=== PATIENT | female | born 1955 | race Caucasian/White ===

== ENCOUNTER → 2023-09-12 | Outpatient (CLI) | payer OTHER ==
[2023-09-12 17:34] LABS: BASOPHILS PERCENT AUTO 2 % (0-2); EOSINOPHILS ABSOLUTE AUTO 0.05 K/mm3 (0.00-0.68); EOSINOPHILS PERCENT AUTO 1 % (0-6); Hemoglobin 10.4 g/dL (11.5-16.0); IMMATURE GRAN ABSOLUTE AUTO 0.02 K/mm3 (0.00-0.10); IMMATURE GRAN PERCENT AUTO 0 % (0-1); LYMPHOCYTES ABSOLUTE AUTO 1.96 K/mm3 (0.84-5.20); LYMPHOCYTES PERCENT AUTO 33 % (21-46); MONOCYTES ABSOLUTE AUTO 0.44 K/mm3 (0.16-1.47); MONOCYTES PERCENT AUTO 8 % (4-13); Mean Corpuscular HGB 30.1 pg (26.0-34.0); Mean Corpuscular HGB Conc 33.5 g/dL (31.5-36.5); Mean Corpuscular Volume 90 fL (80-100); Mean Platelet Volume 9.5 fL (9.1-12.4); NEUTROPHILS ABSOLUTE AUTO 3.31 K/mm3 (1.96-9.15); NEUTROPHILS PERCENT AUTO 56 % (41-73); Platelet Count 390 K/mm3 (150-400); RDW Coefficient Variation 23.9 % (11.7-14.2); RDW Standard Deviation 76.8 fL (35.1-46.3); Red Blood Cell Count 3.45 M/mm3 (3.80-5.20); White Blood Cell Count 5.88 K/mm3 (4.00-11.30)
[2023-09-12 17:42] LABS: CHOL/HDL RATIO 3.3; Cholesterol 147 mg/dL (50-200); HDL Cholesterol 45 mg/dL (>39); Low Density Lipoprotein Chol 92 mg/dL (0-110); Triglycerides 52 mg/dL (30-160); Very Low Density Lipoprot Chol 10 mg/dL (6-32)
[2023-09-14 08:11] LABS: BILIRUBIN, TOTAL 0.3 mg/dL (0.0-1.2); CALCIUM, SERUM 8.8 mg/dL (8.7-10.3); CREATININE, SERUM 0.63 mg/dL (0.57-1.00); GLOBULIN, TOTAL 2.1 g/dL (1.5-4.5); POTASSIUM, SERUM 3.6 mmol/L (3.5-5.2); PROTEIN, TOTAL, SERUM 6.3 g/dL (6.0-8.5)
[2023-09-14 10:18] LABS: HIV 1,2 COMBO ANTIGEN/ANTIBODY Negative (Negative)
[2023-09-14 11:37] LABS: HEPATITIS C AB CIA INTERP Negative (Negative); HEPATITIS C ANTIBODY CIA INDEX 0.05 IV
== END | disposition home or self-care (01) ==
LOC: LAB SHORT 16:00 → LAB 16:00
PROVIDERS: Nurse Practitioner Family
DX: Z11.59 Encounter for screening for other viral diseases (principal); Z13.0 Encounter for screening for diseases of the blood and blood-forming organs and certain disorders involving the immune mechanism; Z13.1 Encounter for screening for diabetes mellitus; Z13.228 Encounter for screening for other metabolic disorders; Z13.29 Encounter for screening for other suspected endocrine disorder; Z13.6 Encounter for screening for cardiovascular disorders
CPT/HCPCS: 80053; 80061; 83036; 84443; 85025; 86803; 87389

== ENCOUNTER → 2024-09-03 | Outpatient (CLI) | payer OTHER ==
[2024-09-03 18:51] LABS: BASOPHILS ABSOLUTE AUTO 0.14 K/mm3 (0.00-0.23); BASOPHILS PERCENT AUTO 2 % (0-2); EOSINOPHILS ABSOLUTE AUTO 0.13 K/mm3 (0.00-0.68); EOSINOPHILS PERCENT AUTO 2 % (0-6); Hematocrit 33.1 % (33.0-51.0); Hemoglobin 11.2 g/dL (11.5-16.0); IMMATURE GRAN ABSOLUTE AUTO 0.01 K/mm3 (0.00-0.10); IMMATURE GRAN PERCENT AUTO 0 % (0-1); LYMPHOCYTES ABSOLUTE AUTO 2.95 K/mm3 (0.84-5.20); LYMPHOCYTES PERCENT AUTO 37 % (21-46); MONOCYTES ABSOLUTE AUTO 0.61 K/mm3 (0.16-1.47); MONOCYTES PERCENT AUTO 8 % (4-13); Mean Corpuscular HGB 30.2 pg (26.0-34.0); Mean Corpuscular HGB Conc 33.8 g/dL (31.5-36.5); Mean Corpuscular Volume 89 fL (80-100); Mean Platelet Volume 9.2 fL (9.1-12.4); NEUTROPHILS ABSOLUTE AUTO 4.14 K/mm3 (1.96-9.15); NEUTROPHILS PERCENT AUTO 52 % (41-73); Platelet Count 383 K/mm3 (150-400); RDW Coefficient Variation 22.6 % (11.7-14.2); Red Blood Cell Count 3.71 M/mm3 (3.80-5.20); White Blood Cell Count 7.98 K/mm3 (4.00-11.30)
[2024-09-03 19:58] LABS: Alanine Aminotransfer (ALT/SGP 20 U/L (12-78); Albumin, Blood 3.8 g/dL (3.4-5.0); Albumin/Globulin Ratio 1.1 (0.8-1.8); Alk Phos 87 U/L (50-136); Anion Gap 11 mmol/L (3-11); Aspartate Aminotrans (AST/SGOT 13 U/L (12-37); Bilirubin, Total 0.5 mg/dL (0.1-1.0); Blood Urea Nitrogen 8 mg/dL (8-24); Bun/Creatinine Ratio 13.5 (12.0-20.0); CO2, Blood 25 mmol/L (21-32); Calcium, Blood 8.9 mg/dL (8.5-10.1); Chloride, Blood 107 mmol/L (98-108); Creatinine, Blood 0.59 mg/dL (0.40-1.00); Globulin, Blood 3.4 g/dL (2.2-4.0); Glomerular Filtration Rate 99 (60-); Glucose, Blood 105 mg/dL (70-99); Potassium, Blood 3.1 mmol/L (3.5-5.5); Sodium, Blood 140 mmol/L (136-145); Total Protein, Blood 7.2 g/dL (6.4-8.2)
[2024-09-04 10:36] LABS: CHOL/HDL RATIO 3.6; Cholesterol 158 mg/dL (50-200); HDL Cholesterol 44 mg/dL (>39); LDL/HDL RATIO 2.2; Low Density Lipoprotein Chol 98 mg/dL (0-110); Triglycerides 81 mg/dL (30-160); Very Low Density Lipoprot Chol 16 mg/dL (6-32)
== END | disposition home or self-care (01) ==
LOC: LAB SHORT 17:37 → LAB 17:37
PROVIDERS: Nurse Practitioner Family
DX: Z13.6 Encounter for screening for cardiovascular disorders (principal); D64.9 Anemia, unspecified; R03.0 Elevated blood-pressure reading, without diagnosis of hypertension
CPT/HCPCS: 80053; 80061; 84443; 85025